=== PATIENT | male | born 1975 | race Two or more races ===

== ENCOUNTER 2017-01-17 14:41 | Emergency (ER) | payer OTHER ==
[~2017-01-17] VITALS: Ht 165.1 cm; Wt 86.2 kg
[2017-01-17] MEDS ORDERED: QVAR7.3 GM INH (14:50)
[2017-01-17] MEDS ORDERED: Ketorolac 60mg Inj IM ONE (15:15)
[2017-01-17] MEDS ORDERED: IBUPROFEN600 MG ORAL (15:23)
[2017-01-17] MEDS ORDERED: GABAPENTIN300 MG ORAL (15:23)
[2017-01-17 15:40] VITALS: BP 149/93
--- NOTE | 2017-01-17 22:39 | Emergency Room Report ---
History of Present Illness General Chief Complaint: Lower Extremity Injury Source: Patient Present Illness HPI The patient is a 41-year-old male presenting for back pain. The patient states that he has had back pain for the past 3 days and began without any known provoking factors. Pain is a 7/10 sharp sensation to the left lower back and radiates down the back of the left leg. He states that he has had sciatica in the past and this feels the same. Pain worse with bending over and walking. He has tried Motrin at home which has not helped. He denies any other symptoms including numbness or tingling Allergies: Coded Allergies: No Known Allergies (Unverified , 01/17/17) Patient History Past Medical History: see triage record Pertinent Family History: none Reviewed Nursing Documentation: PMH: Agreed, PSxH: Agreed Nursing Documentation-PMH Past Medical History: No Stated History Review of Systems All Other Systems: negative except mentioned in HPI Physical Exam Vital Signs Date Time Temp Pulse Resp B/P Pulse Ox O2 Delivery O2 Flow Rate FiO2 01/17/17 14:43 98.2 86 18 149/93 99 Room Air Sp02 EP Interpretation: reviewed, normal General Appearance: no apparent distress, alert, GCS 15, non-toxic Head: normocephalic, atraumatic Eyes: bilateral eye PERRL, bilateral eye normal inspection ENT: hearing grossly normal, normal pharynx, no angioedema, normal voice Musculoskeletal: normal range of motion, tender - TTP over the L buttock and L lower para spinous muscles Neurologic: alert, oriented x3, responsive, motor strength/tone normal, sensory intact, normal gait, speech normal Psychiatric: judgement/insight normal, memory normal, mood/affect normal, no suicidal/homicidal ideation Skin: normal color, no rash, warm/dry, well hydrated Medical Decision Making PA Attestation Dr. Vasquez is my supervising physician. Patient management was discussed with my supervising physician Diagnostic Impression: Primary Impression: Sciatica of left side ER Course The patient is a 41-year-old male presenting for back pain Ddx considered include but not limited to lumbar strain, disc herniation, degenerative disease, chronic pain, among others Physical exam is consistent with sciatica. The patient will be treated with a prescription for Motrin and gabapentin. He needs to follow up with primary doctor. He was informed that if pain continues or worsens, he may need MRI ER precautions given Last Vital Signs Date Time Temp Pulse Resp B/P Pulse Ox O2 Delivery O2 Flow Rate FiO2 01/17/17 15:40 98.2 18 149/93 99 Room Air 01/17/17 14:43 86 Status: improved Disposition: HOME, SELF-CARE Condition: Improved Scripts Gabapentin* (GABAPENTIN*) 300 Mg Capsule 300 MG ORAL THREE TIMES A DAY, #30 CAP 0 Refills Prov: APRIL SAHA 01/17/17 Ibuprofen* (MOTRIN*) 600 Mg Tablet 600 MG ORAL Q8H Y for For Pain, #30 TAB 0 Refills Prov: APRIL SAHAARufino 01/17/17 Referrals: [facility] (PCP) Patient Instructions: Sciatica Additional Instructions: I discussed my findings with the patient. All questions and concerns have been answered. Treatment and medication compliance have been addressed. I advised the patient that they need to follow up with PMD in 3-5 days. Return to ED if symptoms worsen, new symptoms arise, or if needed for any reason. Patient verbalized understanding of discharge instructions. APRIL SAHA Jan 17, 2017 22:39
== END 2017-01-17 15:40 | disposition home or self-care (01) ==
LOC: EMR 15:40
DX: M54.42 Lumbago with sciatica, left side (principal)
CPT/HCPCS: 96372; 99284